=== PATIENT | female | born 1995 | race Caucasian/White ===

== ENCOUNTER 2019-03-24 08:42 | Emergency (ER) | payer SELFPAY ==
--- NOTE | 2019-03-24 08:59 | ED ---
GI/ HPI - History of Current Complaint Chief Complaint: EDAbdPain Time Seen by Provider: 03/24/19 08:56 Stated Complaint: POSSIBLE UTI Hx Obtained From: Patient Pain Intensity: 5 - Allergy/Home Medications Allergies/Adverse Reactions: Allergies Allergy/AdvReac Type Severity Reaction Status Date / Time Penicillins Allergy Unknown Verified 03/24/19 08:50 Reaction Details PMH/Surg Hx/FS Hx/Imm Hx Previously Healthy: Yes Infectious Disease History: No Infectious Disease History: Denies: Traveled Outside the [place] in Last 30 Days - Family History Known Family History: Positive: Non-Contributory - Social History Occupation: Student Lives: Dormitory/Roommates Physical Exam Vital Signs On Initial Exam: Initial Vitals Temp Pulse Resp BP Pulse Ox 98.5 F 120 16 154/97 99 03/24/19 08:44 03/24/19 08:44 03/24/19 08:44 03/24/19 08:44 03/24/19 08:44 Diagnostics - Vital Signs Vital Signs Temp Pulse Resp BP Pulse Ox 03/24/19 08:44 98.5 F 120 16 154/97 99 - Laboratory Lab Statement: Any lab studies that have been ordered have been reviewed, and results considered in the medical decision making process. Discharge ED - Discharge Plan Referrals: [facility] - Andrzej HACKETT [Primary Care Provider] -
[2019-03-24] MEDS ORDERED: NS 0.9% 1000 ML** 1,000 ML IV ONE ×2 (09:05→09:28)
--- NOTE | 2019-03-24 09:16 | ED ---
Complex/Multi-Sys Presentation - HPI Summary HPI Summary: Patient is a 14-year-old female who presents emergency Department with complaints of lower abdominal pain and difficulty urinating/dusuria since yesterday. Patient denies associate symptoms of recent illness, vomiting, diarrhea, constipation, hematuria, vaginal discharge or bleeding. Pt. denies being sexually active and denies possibility of STIs. No past medical history. Patient with to be tachycardic in triage and patient states she's been very anxious today and missed her final secondary to symptoms. Patient denies history of arrhythmias. Notes intermittent vaping. Otherwise denies drug use. Sxs are moderate in severity. - History Of Current Complaint Chief Complaint: EDAbdPain Time Seen by Provider: 03/24/19 08:56 Hx Obtained From: Patient - Allergies/Home Medications Allergies/Adverse Reactions: Allergies Allergy/AdvReac Type Severity Reaction Status Date / Time Penicillins Allergy Unknown Verified 03/24/19 08:50 Reaction Details Home Medications: Home Medications Lisdexamfetamine(NF) [Vyvanse(NF)] 30 mg PO DAILY 03/24/19 [History Confirmed ] PMH/Surg Hx/FS Hx/Imm Hx Previously Healthy: Yes Infectious Disease History: No Infectious Disease History: Denies: Traveled Outside the [place] in Last 30 Days - Family History Known Family History: Positive: Non-Contributory - Social History Occupation: Student Lives: Dormitory/Roommates Alcohol Use: Weekly Substance Use Type: Reports: None Smoking Status (MU): Never Smoked Tobacco Review of Systems Constitutional: Negative Negative: Fever ENT: Negative Positive: Palpitations. Negative: Chest Pain Respiratory: Negative Positive: Abdominal Pain. Negative: Vomiting, Diarrhea, Nausea Positive: dysuria, frequency, urgency. Negative: discharge, hematuria Skin: Negative Neurological: Negative All Other Systems Reviewed And Are Negative: Yes Physical Exam Triage Information Reviewed: Yes Vital Signs On Initial Exam: Initial Vitals Temp Pulse Resp BP Pulse Ox 98.5 F 120 16 154/97 99 03/24/19 08:44 03/24/19 08:44 03/24/19 08:44 03/24/19 08:44 03/24/19 08:44 Vital Signs Reviewed: Yes Appearance: Positive: Well-Appearing - Pt. sitting up in bed, anxious. NAD. Skin: Positive: Warm, Dry Head/Face: Positive: Normal Head/Face Inspection Eyes: Positive: Normal, EOMI, ESTEPHANIE Neck: Positive: Supple Respiratory/Lung Sounds: Positive: Clear to Auscultation, Breath Sounds Present Cardiovascular: Positive: Tachycardia Abdomen Description: Positive: Other: - Abd. is soft with mild tenderness to RLQ and suprapubic region. Mild tendnerness to right CVA. Neurological: Positive: Normal, CN Intact II-III Psychiatric: Positive: Affect/Mood Appropriate Procedures - Sedation Patient Received Moderate/Deep Sedation with Procedure: No Diagnostics - Vital Signs Vital Signs Temp Pulse Resp BP Pulse Ox 03/24/19 08:44 98.5 F 120 16 154/97 99 - Laboratory Result Diagrams: 03/24/19 09:19 03/24/19 09:14 Lab Statement: Any lab studies that have been ordered have been reviewed, and results considered in the medical decision making process. Complex Multi-Symp Course/Dx Course Of Treatment: Patient presenting with complaints of lower abdominal pain and dysuria. Patient notes pain seems started her back and radiates into the lower abdomen. Upon arrival to the ER patient noted to be tachycardic in the 120s to 130s. Patient notes she fell she is to have Yecenia has not been drinking fluids lately and has been very stressed with final's. ECG done at 09 shows a sinus tachycardia of 129bpm, normal axis. Patient was started on IV fluids we will obtain labs and UA. CBC shows normal white blood cell count. Potassium mildly low at 3.2. Negative . Normal renal function. Urinalysis shows microscopic RBCs without nitrates, bacteria or leukoesterase. Heart rate improving with IV fluids. Reexamination patient still complaining of pain. We'll obtain CT scan of abdomen and pelvis to rule out obstructive uropathy, appendicitis. Patient does IV Toradol and potassium. CT scan negative for acute findings. Unclear of pt.'s pain etiology. Discussed with pt obtain pelvic u/s to evaluate ovary and blood flow but pt. denies. Pt. denies pelvic exam as well. She is aware of significance of these test. Pt. feeling moderately better after toradol. HR improved into the 90's. Case discussed with pt.'s father who is a physician in [place]. He would like a course of bactrim for possible uti given pt.'s dysuria which seems reasonable. Culture pending. Pt. comfortable with dc home. [facility] and will return to er if sxs change or worsen. - Diagnoses Differential Diagnoses/HQI/PQRI: Metabolic Abnormality, Urinary Tract Infection Provider Diagnoses: Dysuria, Dehydration Discharge ED - Sign-Out/Discharge Documenting (check all that apply): Patient Departure - Discharge Plan Condition: Improved Disposition: HOME Prescriptions: Sulfamethox/Trimethoprim DS* [Bactrim DS 800/160 TAB*] 1 tab PO BID #14 tab Patient Education Materials: Dehydration (ED), Urinary Tract Infection in Women (ED), Abdominal Pain (ED) Forms: *School Release Referrals: [facility] - Andrzej HACKETT [Primary Care Provider] - Additional Instructions: Follow up with [facility] in 2-3 days for recheck Take antibiotic as directed Increase fluids and rest Ibuprofen for pain as directed Return to ER for increased pain, fever, vomiting, or if concerned - Billing Disposition and Condition Condition: IMPROVED Disposition: Home - Attestation Statements Provider Attestation: I was available for consult. This patient was seen by the JENNIFER. The patient was not presented to, seen by, or examined by me. -Nilda
[2019-03-24 09:28] LABS: ABS Eosinophils 0.1 10^3/ul (0-0.6); ABS Lymphocytes 3.5 10^3/ul (1.0-4.8); ABS Monocytes 0.7 10^3/ul (0-0.8); ABS Neutrophils 4.1 10^3/ul (1.5-7.7); Eosinophil % 1.1 %; Hematocrit 40 % (35-47); Hemoglobin 13.6 g/dL (12.0-16.0); Lymphocyte % 41.7 %; Mean Corpuscular HGB Conc 34 g/dL (31-36); Mean Corpuscular Hemoglobin 29 pg (27-31); Mean Corpuscular Volume 85 fL (80-97); Mean Platelet Volume 7.9 fL (7.4-10.4); Nucleated Red Blood Cells % 0.1; Platelet Count 315 10^3/uL (150-450); Red Blood Count 4.68 10^6 /uL (3.70-4.87); Red Cell Distribution Width 15 % (10-15); White Blood Count 8.5 10^3/uL (3.5-10.8)
[2019-03-24 09:45] LABS: ALT 8 U/L (7-52); AST 15 U/L (13-39); Albumin 4.7 g/dL (3.2-5.2); Albumin/Globulin Ratio 1.3 (1-3); Alkaline Phosphatase 59 U/L (34-104); Anion Gap 12 mmol/L (2-11); BUN/Creatinine Ratio 12.6 (8-20); Blood Urea Nitrogen 11 mg/dL (6-24); CO2 Carbon Dioxide 22 mmol/L (22-32); Calcium 9.8 mg/dL (8.6-10.3); Chloride 103 mmol/L (101-111); EGFR African American 99.5 (>60); EGFR Non-African American 82.2 (>60); Globulin 3.5 g/dL (2-4); Glucose 128 mg/dL (70-100); Potassium 3.2 mmol/L (3.5-5.0); Sodium 137 mmol/L (135-145); Total Protein 8.2 g/dL (6.4-8.9)
[2019-03-24 09:52] LABS: HCG Pregnancy < 0.60 mIU/mL
[2019-03-24] MEDS ORDERED: Potassium Chlor TAB* 20 MEQ TAB.ER PO ONE (09:54)
[2019-03-24 10:08] LABS: TSH (Thyroid Stimulating Horm) 4.68 mcIU/mL (0.34-5.60)
[2019-03-24 10:34] LABS: Urine Appearance Clear; Urine Bilirubin Negative (Negative); Urine Blood 1+ (Negative); Urine Color Yellow; Urine Glucose Negative (Negative); Urine Ketones 1+ (Negative); Urine Nitrite Negative (Negative); Urine Protein Negative (Negative); Urine Specific Gravity 1.015 (1.010-1.030); Urine Urobilinogen Negative (Negative)
[2019-03-24 10:35] LABS: Urine Bacteria Absent (Absent); Urine Red Blood Cell Trace(0-2/hpf) (Absent); Urine Squamous Epithelial Cell Present (Absent); Urine White Blood Cell Absent (Absent)
[2019-03-24] MEDS ORDERED: Ketorolac INJ* 30 MG/ML 1 ML VIAL IV PUSH ONE (10:52)
[2019-03-24 12:45] VITALS: BP 130/87
== END 2019-03-24 12:37 | disposition home or self-care (01) ==
LOC: ED 08:42
DX: R30.0 Dysuria (principal); E86.0 Dehydration; Z79.899 Other long term (current) drug therapy; Z88.0 Allergy status to penicillin
CPT/HCPCS: 36415; 74176; 80053; 81003; 81015; 83605; 83735; 84443; 84484; 84702; 85025; 93005; 96361; 96374; 99283; A9270-GY; J1885